=== PATIENT | male | born 1950 | race Caucasian/White ===

== ENCOUNTER 2016-05-14 04:48 | Emergency (ER) | payer BC ==
[2016-05-14] MEDS ORDERED: Aspirin Low Dose CHEW TAB* 81 MG PO ONE (04:57)
[2016-05-14 05:32] LABS: Hematocrit 42 % (42-52); Hemoglobin 13.8 g/dl (14.0-18.0); Mean Corpuscular HGB Conc 33 g/dl (31-36); Mean Corpuscular Hemoglobin 31 pg (27-31); Mean Corpuscular Volume 92 fL (80-94); Mean Platelet Volume 9 um3 (7.4-10.4); Red Blood Count 4.49 10^6/ul (4.0-5.4); Red Cell Distribution Width 14 % (10.5-15); White Blood Count 8.5 10^3/ul (3.5-10.8)
[2016-05-14 05:46] LABS: Albumin 3.8 g/dL (3.2-5.2); BUN/Creatinine Ratio 20.6 (8-20); Calcium 8.8 mg/dL (8.6-10.3); EGFR African American 100.2 (>60); EGFR Non-African American 77.9 (>60); Globulin 2.8 g/dL (2-4); Potassium 3.8 mmol/L (3.5-5.0); Total Bilirubin 0.6 mg/dL (0.2-1.0); Total Protein 6.6 g/dL (6.4-8.9)
[2016-05-14 05:48] LABS: Troponin I 0.01 ng/mL (<0.04)
[2016-05-14 06:07] VITALS: BP 146/85
--- NOTE | 2016-05-14 06:28 | ED ---
Maida Joya Claudia, scribed for Kaelyn Lara MD on 05/14/16 at 0503 . HPI Chest Pain - HPI Summary HPI Summary: 65 year old male presents to the ED with CP. Pt notes CP for the past 2 nights ( 05/12 and 05/13). Pt notes the pain woke him up both nights at about 230am. The first night he took nitroglycerol and it alleviated his Sx the second night he took Mylanta thinking it was related to his recent esophageal complications but it did not alleviate his Sx so he decided to come to the ED. Pt describes thw pain as midsternal pressure. Pt notes PMHx of [place] in 2000 with 2 stents placed. He notes similar Sx to that episode. He denies any fever chills accompanying these Sx. - History of Current Complaint Chief Complaint: EDChestPainROMI Time Seen by Provider: 05/14/16 04:57 Hx Obtained From: Patient Onset/Duration: Started Days Ago Timing: Intermittent Chest Pain Location: Mid Sternal Chest Pain Radiates: Yes Character: Pressure/Squeezing Aggravating Factor(s): Nothing Alleviating Factor(s): NTG 123 Associated Signs and Symptoms: Positive: Chest Pain - Allergy/Home Medications Allergies/Adverse Reactions: Allergies Allergy/AdvReac Type Severity Reaction Status Date / Time Clindamycin Allergy Rash And Verified 05/14/16 05:02 Itching PMH/Surg Hx/FS Hx/Imm Hx Previously Healthy: Yes Endocrine/Hematology History: Denies: Hx Diabetes Cardiovascular History: Reports: Hx Hypertension, Hx Myocardial Infarction - 2000 - Surgical History Surgery Procedure, Year, and Place: Hernia repair. Deviated septum surgery. Cataract surgiers bilateral eyes Infectious Disease History: Denies: History Other Infectious Disease, Traveled Outside the [place] in Last 30 Days - Family History Known Family History: Negative: Diabetes - Social History Occupation: Disabled Lives: With Family Alcohol Use: None Substance Use Type: Reports: None Smoking Status (MU): Never Smoked Tobacco Review of Systems Constitutional: Negative Negative: Fever, Chills Eyes: Negative ENT: Negative Positive: Chest Pain Respiratory: Negative Gastrointestinal: Negative Genitourinary: Negative Musculoskeletal: Negative Skin: Negative Neurological: Negative Psychological: Normal All Other Systems Reviewed And Are Negative: Yes Physical Exam Triage Information Reviewed: Yes Vital Signs On Initial Exam: Initial Vitals Temp Pulse Resp BP Pulse Ox 100.2 F 57 16 139/90 96 05/14/16 04:55 05/14/16 04:55 05/14/16 04:55 05/14/16 04:55 05/14/16 04:55 Vital Signs Reviewed: Yes Appearance: Positive: Well-Appearing, No Pain Distress Skin: Positive: Warm, Skin Color Reflects Adequate Perfusion, Dry Eyes: Positive: EOMI, ESTER Neck: Positive: Supple, Nontender Respiratory/Lung Sounds: Positive: Clear to Auscultation, Breath Sounds Present. Negative: Rales, Rhonchi, Wheezes Cardiovascular: Positive: RRR. Negative: Murmur, Leg Edema Left, Leg Edema Right Abdomen Description: Positive: Nontender, Soft. Negative: Distended, Guarding Musculoskeletal: Positive: Strength/ROM Intact Neurological: Positive: Sensory/Motor Intact, Alert, Oriented to Person Place, Time, CN Intact II-III Psychiatric: Positive: Affect/Mood Appropriate Diagnostics - Vital Signs Vital Signs Temp Pulse Resp BP Pulse Ox 05/14/16 06:05 55 18 146/85 96 05/14/16 05:30 52 18 122/82 97 05/14/16 05:04 98.7 F 57 17 139/90 97 05/14/16 04:55 100.2 F 57 16 139/90 96 - Laboratory Lab Results: Lab Results 05/14/16 05/14/16 05/14/16 Range/Units 05:12 05:12 05:12 WBC 8.5 (3.5-10.8) 10^3/ul RBC 4.49 (4.0-5.4) 10^6/ul Hgb 13.8 L (14.0-18.0) g/dl Hct 42 (42-52) % MCV 92 (80-94) fL MCH 31 (27-31) pg MCHC 33 (31-36) g/dl RDW 14 (10.5-15) % Plt Count 147 L (150-450) 10^3/ul MPV 9 (7.4-10.4) um3 Neut % (Auto) 70.2 (38-83) % Lymph % (Auto) 23.0 L (25-47) % [place] % (Auto) 6.2 (1-9) % Eos % (Auto) 0.1 (0-6) % Baso % (Auto) 0.5 (0-2) % Absolute Neuts (auto) 6.0 (1.5-7.7) 10^3/ul Absolute Lymphs (auto) 2.0 (1.0-4.8) 10^3/ul Absolute Monos (auto) 0.5 (0-0.8) 10^3/ul Absolute Eos (auto) 0 (0-0.6) 10^3/ul Absolute Basos (auto) 0 (0-0.2) 10^3/ul Absolute Nucleated RBC 0.01 10^3/ul Nucleated RBC % 0.1 Sodium 136 (133-145) mmol/L Potassium 3.8 (3.5-5.0) mmol/L Chloride 102 (101-111) mmol/L Carbon Dioxide 29 (22-32) mmol/L Anion Gap 5 (2-11) mmol/L BUN 20 (6-24) mg/dL Creatinine 0.97 (0.67-1.17) mg/dL Est GFR ( Amer) 100.2 (>60) Est GFR (Non-Af Amer) 77.9 (>60) BUN/Creatinine Ratio 20.6 H (8-20) Glucose 109 H (70-100) mg/dL Lactic Acid 1.1 (0.5-2.0) mmol/L Calcium 8.8 (8.6-10.3) mg/dL Total Bilirubin 0.60 (0.2-1.0) mg/dL AST 18 (13-39) U/L ALT 29 (7-52) U/L Alkaline Phosphatase 43 (34-104) U/L Troponin I 0.01 (<0.04) ng/mL Total Protein 6.6 (6.4-8.9) g/dL Albumin 3.8 (3.2-5.2) g/dL Globulin 2.8 (2-4) g/dL Albumin/Globulin Ratio 1.4 (1-3) Result Diagrams: 05/14/16 05:12 05/14/16 05:12 Lab Statement: Any lab studies that have been ordered have been reviewed, and results considered in the medical decision making process. - Radiology CXR Xray Interpretation: No Acute Changes - WIDENED MEDIASTINUM NOT NEW Radiology Interpretation Completed By: ED Physician - EKG 458 Cardiac Rate: NL EKG Rhythm: Sinus Bradycardia - 58 BEATS/MIN ST Segment: Normal Ectopy: None Chest Pain Course/Dx - Course Course Of Treatment: 65 yo male with cad hx and esophageal issues who comes in withcp, first ekg neg and first trop neg with the plan of bringing pt into hospital for obv. Pt suddenly was adament that he needed to leave because of his chronic back pain. Pt wouldn't wait for risks and benefits and so pt did sign an ama form - Diagnoses Provider Diagnoses: Chest pain Discharge - Discharge Plan Condition: Guarded Disposition: AGAINST MEDICAL ADVICE Referrals: Adelia Eugene MD [Primary Care Provider] - The documentation as recorded by the Maida ifnch Claudia accurately reflects the service I personally performed and the decisions made by me, Kaelyn Lara MD.
--- NOTE | 2016-05-14 08:11 | RAD ---
INDICATION: Chest pain COMPARISON: None TECHNIQUE: An AP portable view obtained at 0515 hours is submitted. FINDINGS: Bones/Soft Tissues: There are no acute bony findings. Cardiomediastinal: The cardiomediastinal silhouette is mildly prominent with uncoiling of the thoracic aorta. Lungs: There are no infiltrates. Pleura: There are no pleural effusions. Other: None IMPRESSION: MILD PROMINENCE IN SIZE OF THE CARDIAC S[place]ETTE. LUNGS CLEAR.
== END 2016-05-14 06:06 | disposition left against medical advice (07) ==
LOC: ED 04:48
DX: R07.9 Chest pain, unspecified (principal)
CPT/HCPCS: 36415; 71010; 80053; 83605; 84484; 85025; 93005; 99282

== ENCOUNTER 2016-05-24 11:34 | Emergency (ER) | payer BC | END 2016-05-24 12:16 | disposition left against medical advice (07) | LOC: UCEAST 11:34 | DX: M79.2 Neuralgia and neuritis, unspecified (principal); Z53.21 Procedure and treatment not carried out due to patient leaving prior to being seen by health care provider ==